=== PATIENT | male | born 1975 | race Caucasian/White ===

== ENCOUNTER 2017-01-25 00:23 | Inpatient (IN) | payer BC ==
--- NOTE | 2017-01-25 00:39 | C.PDOC ---
History Of Present Illness pt presents with abdominal pain, nausea, vomiting , not tolerating po worsening since yesterday. No f/c. No constipation or diarrhea. Possible outside food yesterday Time Seen by Provider: 01/25/17 00:38 Chief Complaint (Nursing): Abdominal Pain History Per: Patient History/Exam Limitations: no limitations Onset/Duration Of Symptoms: Days Current Symptoms Are (Timing): Still Present Context: Food Severity: Moderate Pain Scale Rating Of: 5 Location Of Pain/Discomfort: Diffuse Radiation Of Pain To:: None Quality Of Discomfort: Sharp, Aching, Cramping Associated Symptoms: Nausea, Vomiting, Loss Of Appetite. denies: Fever, Chills , Constipation Exacerbating Factors: Food Alleviating Factors: None Last Bowel Movement: Today Recent travel outside of the [place]: No Additional History Per: Family Past Medical History Reviewed: Historical Data, Nursing Documentation, Vital Signs Vital Signs: Last Vital Signs Temp 98.5 F 01/25/17 00:31 Pulse 120 H 01/25/17 00:31 Resp 16 01/25/17 00:31 BP 139/91 H 01/25/17 00:31 Pulse Ox 98 01/25/17 00:55 Family History: States: No Known Family Hx - Social History Hx Tobacco Use: No Hx Alcohol Use: Yes Hx Substance Use: No - Immunization History Hx Tetanus Toxoid Vaccination: No Hx Influenza Vaccination: No Hx Pneumococcal Vaccination: No Review Of Systems Constitutional: Positive for: Malaise. Negative for: Fever, Chills Eyes: Negative for: Vision Change ENT: Negative for: Throat Pain Cardiovascular: Negative for: Chest Pain, Palpitations Respiratory: Negative for: Shortness of Breath Gastrointestinal: Positive for: Nausea, Vomiting, Abdominal Pain Genitourinary: Negative for: Dysuria Musculoskeletal: Negative for: Back Pain Skin: Negative for: Rash, Lesions, Jaundice, Bruising Neurological: Negative for: Weakness Psych: Negative for: Anxiety Physical Exam - Physical Exam Appears: Non-toxic Skin: Warm, Dry Head: Normacephalic Eye(s): bilateral: Normal Inspection Oral Mucosa: Dry Teeth: Normal Dentition Throat: No Erythema Neck: Trachea Midline, Supple Chest: Symmetrical Cardiovascular: Rhythm Regular Respiratory: No Rales, No Rhonchi, No Wheezing Gastrointestinal/Abdominal: Bowel Sounds (tympanic to percussion), Soft, No Tenderness, No Distention, No Guarding Extremity: Normal ROM Extremity: Bilateral: Atraumatic, Normal Color And Temperature, Normal ROM Neurological/Psych: Oriented x3, Normal Speech, Normal Cognition Gait: Steady ED Course And Treatment - Laboratory Results Result Diagrams: 01/25/17 00:49 01/25/17 00:49 O2 Sat by Pulse Oximetry: 98 Pulse Ox Interpretation: Normal Progress Note: blood work, ivf, morphine, ct scan Disposition Discussed With DrBartolome: Joey Bermudez Comment: accepted the pt on his service and took over the care at 2:24 AM Doctor Will See Patient In The: ED Counseled Patient/Family Regarding: Studies Performed, Diagnosis - Disposition Disposition: HOSPITALIZED Disposition Time: 00:39 Condition: FAIR - Clinical Impression Clinical Impression: Abdominal pain, Small bowel obstruction, Enteritis
[2017-01-25] MEDS ORDERED: Sodium Chloride 0.9% 1,000 ML IV ONE ×2 (00:41→02:18)
[2017-01-25] MEDS ORDERED: Sodium Chloride 0.9% 1,000 ML ONE ×2 (00:51→02:23)
[2017-01-25 00:52] LABS: BASO % 0.2 % (0.0-2.0); EOS # 0.1 K/uL (0.0-0.7); EOS % 0.9 % (0.0-4.0); HEMATOCRIT 47.1 % (35.0-51.0); LYMPH # 0.6 K/uL (1.0-4.3); LYMPH % 6.3 % (20.0-40.0); MEAN CELL VOLUME 87.6 fL (80.0-94.0); MEAN CORPUSCULAR HEMOGLOBIN 30.2 pg (27.0-31.0); MEAN CORPUSCULAR HGB CONC 34.5 g/dL (33.0-37.0); MEAN PLATELET VOLUME 6.9 fL (7.2-11.7); MONO # 0.5 K/uL (0.0-0.8); MONO % 5.1 % (0.0-10.0); PLATELET COUNT 301 K/uL (130-400); WHITE BLOOD COUNT 9.6 K/uL (4.8-10.8)
[2017-01-25] MEDS ORDERED: Morphine 4 MG/ML VIAL ONE (00:58)
[2017-01-25 01:06] LABS: CHLORIDE 96 mmol/L (98-107); SODIUM 137 mmol/L (132-148)
[2017-01-25 01:07] LABS: POTASSIUM 3.4 mmol/L (3.6-5.2)
[2017-01-25 01:09] LABS: ALB/GLOB RATIO 1.4 (1.0-2.1); ALKALINE PHOSPHATASE 66 U/L (38-126); ALT/SGPT 60 U/L (21-72); AST/SGOT 43 U/L (17-59); BILIRUBIN,TOTAL 1.2 mg/dL (0.2-1.3); BLOOD UREA NITROGEN 17 mg/dL (9-20); CALCIUM 8.5 mg/dl (8.6-10.4); CARBON DIOXIDE 28 mmol/L (22-30); GFR AFRICAN-AMERICAN > 60; GLUCOSE,RANDOM 130 mg/dL (75-110); TOTAL PROTEIN 7.7 g/dL (6.3-8.3)
[2017-01-25] MEDS ORDERED: Iodixanol 320 MG/ML 100 ML BOTTLE IV ONE (01:27)
[2017-01-25 01:43] LABS: BLASTS 1 % (0-0); EOSINOPHIL 1 % (0-4); NEUTROPHIL 46 % (50-75); REACTIVE LYMPHOCYTES 1 % (0-0); TOTAL CELLS COUNTED 100
[2017-01-25] MEDS ORDERED: Piperacillin/Tazobact 3.375 gm 100 ML IVPB STA (01:44)
[2017-01-25] MEDS ORDERED: Piperacillin/Tazobact 3.375 gm 100 ML IVPB ONE (02:11)
[2017-01-25 02:17] LABS: VENOUS BLOOD GAS BASE EXCESS 0.8 mmol/L (0.0-2.0); VENOUS BLOOD GAS PCO2 58 mmHg (40-60)
--- NOTE | 2017-01-25 02:20 | CP.PCM.HP ---
History of Present Illness - History of Present Illness History of Present Illness: CC: stomach pain, vomiting, and diarrhea for 2 days HPI: 41 yo male with no PMHx on no medications presenting with abdominal pain, nausea, and vomiting for the past 2 days. Patient states that Wednesday night he ate a tuna sandwich and started to have abdominal pain 10/10 at the middle of his abdomen, non radiating, and associated nausea, vomiting, and diarrhea. Patient reports he has had ~20 bouts of nonbloody nonmelanotic diarrhea and nonbloody nonbilious emesis. His last episode of emesis was during the day before admission and his last episode of diarrhea was in the ER. He also complained of associated fever and chills. Patient reported taking tylenol for the pain and drinking 1 bottle of pedialyte which helped but a couple of hours later the symptoms returned. Patient also drank prune juice to help his pain and diarrhea which he later threw up. He denied any exacerbating factors. Patient denied headache, dizziness, chest pain, palpitations, SOB, cough, constipation, urinary complaints, pain/swelling in his legs bilaterally. He did admit to fever, chills, nasuea, vomiting, abd pain, diarrhea, full body muscle aches. Patient denied any recent travel, sick contacts, recent illness. Nobody else at home has similar symptoms. PMHx: denies PSHx: denies ALL: denies Medications: denies Social Hx: denies tobacco, EtOH, drugs. Lives at home with and daughters. Works at [employer] Hx: uncertain PMD: [facility] ED Course: labs, NS bolus, pepcid, 1 dose of flagyl and zosyn, morphine for pain , zofran CT Abdomen/pelvis Present on Admission - Present on Admission Any Indicators Present on Admission: No Review of Systems - Constitutional Constitutional: As Per HPI, Chills, Fever, Malaise. absent: Headache, Weight Gain, Weight Loss, Weakness - EENT Eyes: As Per HPI. absent: Blurred Vision Ears: As Per HPI. absent: Tinnitus, Dizziness Nose/Mouth/Throat: As Per HPI. absent: Dysphagia, Sore Throat - Cardiovascular Cardiovascular: As Per HPI. absent: Chest Pain, Dyspnea, Edema, Leg Edema, Palpitations - Respiratory Respiratory: As Per HPI. absent: Cough, Dyspnea, Chest Congestion - Gastrointestinal Gastrointestinal: As Per HPI, Abdominal Pain, Change in Bowel Habits, Change in Stool Character, Cramping, Loose Stools, Nausea, Vomiting. absent: Coffee Ground Emesis, Constipation, Diarrhea, Dyspepsia, Dysphagia, Heartburn, Hematochezia - Genitourinary Genitourinary: As Per HPI, Urinary Frequency. absent: Dysuria, Flank Pain, Hematuria, Pyuria, Nocturia - Musculoskeletal Musculoskeletal: As Per HPI, Back Pain, Myalgias. absent: Numbness, Stiffness, Tingling - Integumentary Integumentary: As Per HPI. absent: Rash - Neurological Neurological: As Per HPI. absent: Dizziness, Headaches, Tingling, Weakness - Psychiatric Psychiatric: As Per HPI. absent: Anxiety, Depression - Endocrine Endocrine: As Per HPI. absent: Polydipsia, Polyphagia, Polyuria - Hematologic/Lymphatic Hematologic: As Per HPI. absent: Easy Bleeding, Easy Bruising, Lymphadenopathy Past Patient History - Past Social History Smoking Status: Never Smoked - PSYCHIATRIC Hx Substance Use: No - SURGICAL HISTORY Hx Surgeries: No Meds Allergies/Adverse Reactions: Allergies Allergy/AdvReac Type Severity Reaction Status Date / Time No Known Allergies Allergy Verified 01/25/17 00:34 Physical Exam - Constitutional Appears: Non-toxic, No Acute Distress - Head Exam Head Exam: ATRAUMATIC, NORMAL INSPECTION, NORMOCEPHALIC - Eye Exam Eye Exam: EOMI, Normal appearance, PERRL. absent: Conjunctival injection, Scleral icterus Pupil Exam: NORMAL ACCOMODATION - ENT Exam ENT Exam: Mucous Membranes Dry - Neck Exam Neck exam: Positive for: Full Rom, Normal Inspection. Negative for: Lymphadenopathy - Respiratory Exam Respiratory Exam: Clear to Auscultation Bilateral, NORMAL BREATHING PATTERN. absent: Accessory Muscle Use, Rales, Rhonchi, Wheezes, Respiratory Distress - Cardiovascular Exam Cardiovascular Exam: Tachycardia, REGULAR RHYTHM, +S1, +S2. absent: Systolic Murmur - GI/Abdominal Exam GI & Abdominal Exam: Normal Bowel Sounds, Soft. absent: Distended, Firm, Guarding, Rigid, Tenderness - Rectal Exam Rectal Exam: Deferred - Extremities Exam Extremities exam: Positive for: normal capillary refill, normal inspection, pedal pulses present. Negative for: pedal edema, tenderness - Back Exam Back exam: NORMAL INSPECTION, paraspinal tenderness. absent: CVA tenderness (L) , CVA tenderness (R), rash noted - Neurological Exam Neurological exam: Alert, CN II-XII Intact, Oriented x3 - Psychiatric Exam Psychiatric exam: Normal Affect, Normal Mood - Skin Skin Exam: Dry, Intact, Normal Color, Warm Results - Vital Signs Recent Vital Signs: Last Vital Signs Temp 98.5 F 01/25/17 00:31 Pulse 120 H 01/25/17 00:31 Resp 16 01/25/17 00:31 BP 139/91 H 01/25/17 00:31 Pulse Ox 98 01/25/17 00:55 - Labs Result Diagrams: 01/25/17 00:49 01/25/17 00:49 Labs: Laboratory Results - last 24 hr 01/25/17 01/25/17 01/25/17 00:49 00:49 00:56 WBC 9.6 RBC 5.37 Hgb 16.2 Hct 47.1 MCV 87.6 MCH 30.2 MCHC 34.5 RDW 13.0 Plt Count 301 MPV 6.9 L Neut % (Auto) 87.5 H Lymph % (Auto) 6.3 L [place] % (Auto) 5.1 Eos % (Auto) 0.9 Baso % (Auto) 0.2 Neut # 8.4 H Lymph # 0.6 L [place] # 0.5 Eos # 0.1 Baso # 0.0 Neutrophils % (Manual) 46 L Band Neutrophils % 37 H* Lymphocytes % (Manual) 9 L Reactive Lymphs % 1 H Monocytes % (Manual) 5 Eosinophils % (Manual) 1 Blast Cells % 1 H Platelet Estimate Normal PT 11.2 INR 1.0 APTT 26 pO2 VBG pH VBG pCO2 VBG HCO3 VBG Total CO2 VBG O2 Sat (Calc) VBG Base Excess VBG Potassium Glucose Lactate Crit Value Called To Crit Value Called By Crit Value Read Back Blood Gas Notified Time Sodium 137 Potassium 3.4 L Chloride 96 L Carbon Dioxide 28 Anion Gap 16 BUN 17 Creatinine 0.8 Est GFR ( Amer) > 60 Est GFR (Non-Af Amer) > 60 Random Glucose 130 H Calcium 8.5 L Total Bilirubin 1.2 AST 43 ALT 60 Alkaline Phosphatase 66 Total Protein 7.7 Albumin 4.6 Globulin 3.2 Albumin/Globulin Ratio 1.4 Lipase 28 Venous Blood Potassium 01/25/17 02:10 WBC RBC Hgb Hct MCV MCH MCHC RDW Plt Count MPV Neut % (Auto) Lymph % (Auto) [place] % (Auto) Eos % (Auto) Baso % (Auto) Neut # Lymph # [place] # Eos # Baso # Neutrophils % (Manual) Band Neutrophils % Lymphocytes % (Manual) Reactive Lymphs % Monocytes % (Manual) Eosinophils % (Manual) Blast Cells % Platelet Estimate PT INR APTT pO2 21 L VBG pH 7.30 L VBG pCO2 58 VBG HCO3 23.7 VBG Total CO2 30.3 H VBG O2 Sat (Calc) 39.1 L VBG Base Excess 0.8 VBG Potassium 3.3 L Glucose 115 H Lactate 1.9 Crit Value Called To Dr burch Crit Value Called By Anne suarez rt Crit Value Read Back Y Blood Gas Notified Time 218 Sodium 140.0 Potassium Chloride 102.0 Carbon Dioxide Anion Gap BUN Creatinine Est GFR ( Amer) Est GFR (Non-Af Amer) Random Glucose Calcium Total Bilirubin AST ALT Alkaline Phosphatase Total Protein Albumin Globulin Albumin/Globulin Ratio Lipase Venous Blood Potassium 3.3 L Assessment & Plan - Assessment and Plan (Free Text) Assessment: 41 yo male with no PMHx on no medications presenting with abdominal pain, nausea , and vomiting for the past 2 days Plan: Gastroenteritis -NPO -f/u CT abdomen/pelvis -Protonix 40mg ivp daily -LR @ 100c/hr -Zofran 4mg ivp q6 PRN nausea/vomiting -Toradol 15mg ivp q6 prn pain -f/u blood culture -f/u stool studies stool culture stool leukocytes ova and parasite FOBT -f/u AM labs PPX -NPO -SCDs -Heparin 5000U SC Q12 -Protonix 40mg ivp daily -LR @ 100c/hr -Zofran 4mg ivp q6 PRN nausea/vomiting -Toradol 15mg ivp q6 prn pain -Accucheck Plan discussed with Dr. Lara Nixon PGY1
[2017-01-25] MEDS ORDERED: metroNIDAZOLE IV 500 mg/100 ml 500 MG/100 ML BAG IVPB STA (02:29)
[2017-01-25] MEDS ORDERED: metroNIDAZOLE IV 500 mg/100 ml 500 MG/100 ML BAG ONE (02:40)
[2017-01-25 02:52] LABS: RBC URINE 1 /hpf (0-3); URINE BILIRUBIN NEGATIVE (NEGATIVE); URINE BLOOD NEGATIVE (NEGATIVE); URINE COLOR Yellow (YELLOW); URINE GLUCOSE (UA) NORMAL (Normal); URINE KETONE 1+ mg/dL (NEGATIVE); URINE LEUKOCYTE ESTERASE NEG Leu/uL (Negative); URINE PROTEIN 1+ mg/dL (NEGATIVE); URINE UROBILINOGEN NORMAL mg/dL (0.2-1.0); WBC URINE 1 /hpf (0-5)
[2017-01-25] MEDS ORDERED: Lactated Ringer's 1,000 ML ONE (03:41)
[2017-01-25] MEDS: Lactated Ringer's 1,000 ML IV SCH ×2 (03:50→13:30)
[2017-01-25 04:53] LABS: BASO % 0.2 % (0.0-2.0); EOS % 0.4 % (0.0-4.0); LYMPH # 0.4 K/uL (1.0-4.3); LYMPH % 4.9 % (20.0-40.0); MEAN CELL VOLUME 88.1 fL (80.0-94.0); MEAN CORPUSCULAR HEMOGLOBIN 30.2 pg (27.0-31.0); MEAN CORPUSCULAR HGB CONC 34.3 g/dL (33.0-37.0); MEAN PLATELET VOLUME 7.1 fL (7.2-11.7); MONO # 1.1 K/uL (0.0-0.8); PLATELET COUNT 261 K/uL (130-400); RED CELL DISTRIBUTION WIDTH 13.1 % (11.5-14.5); WHITE BLOOD COUNT 8.1 K/uL (4.8-10.8)
[2017-01-25 05:37] LABS: CHLORIDE 104 mmol/L (98-107); POTASSIUM 3.4 mmol/L (3.6-5.2); SODIUM 138 mmol/L (132-148)
[2017-01-25 05:39] LABS: ALB/GLOB RATIO 1.3 (1.0-2.1); AST/SGOT 35 U/L (17-59); BILIRUBIN,TOTAL 1.1 mg/dL (0.2-1.3); BLOOD UREA NITROGEN 16 mg/dL (9-20); CARBON DIOXIDE 27 mmol/L (22-30); CHOLESTEROL 191 mg/dL (0-199); GFR AFRICAN-AMERICAN > 60; GLUCOSE,RANDOM 111 mg/dL (75-110); TOTAL PROTEIN 6.6 g/dL (6.3-8.3)
[2017-01-25 05:40] LABS: ALKALINE PHOSPHATASE 52 U/L (38-126); ALT/SGPT 53 U/L (21-72); CALCIUM 7.3 mg/dl (8.6-10.4); MAGNESIUM 1.9 mg/dL (1.6-2.3); PHOSPHOROUS 2.9 mg/dL (2.5-4.5)
[2017-01-25 06:18] LABS: NEUTROPHIL 82 % (50-75); TOTAL CELLS COUNTED 100
--- NOTE | 2017-01-25 08:26 | CT ---
PROCEDURE: CT Abdomen and Pelvis without intravenous contrast HISTORY: Abdominal pain. Nausea and vomiting. COMPARISON: None. TECHNIQUE: Multiple contiguous axial images were performed through the abdomen and pelvis with the use of intravenous contrast. Subsequently, sagittal and coronal reformatted images were obtained. Contrast Dose: 100 cc of Visipaque 320 intravenous contrast. Radiation dose: Total exam DLP = 604 mGy-cm. This CT exam was performed using one or more of the following dose reduction techniques: Automated exposure control, adjustment of the mA and/or kV according to patient size, and/or use of iterative reconstruction technique. FINDINGS: LOWER THORAX: Small hiatal hernia present. LIVER: Mild fatty infiltration of the liver. GALLBLADDER AND BILE DUCTS: Unremarkable. PANCREAS: Unremarkable. No gross lesion or ductal dilatation. SPLEEN: Unremarkable. ADRENALS: Unremarkable. No mass. KIDNEYS AND URETERS: Unremarkable. No hydronephrosis. No solid mass. VASCULATURE: Unremarkable. No aortic aneurysm. BOWEL: Multiple dilated loops of small bowel throughout the abdomen, which are fluid-filled. Terminal ileum is nondilated. Questionable mucosal enhancement in some of the distal small bowel loops. Mildly thickened stomach wall. Fluid-filled colon. APPENDIX: Unremarkable. Normal appendix. PERITONEUM: Unremarkable. No free fluid. No free air. LYMPH NODES: Multiple small mesenteric lymph nodes at the root of the mesentery. BLADDER: Decompressed urinary bladder. REPRODUCTIVE: Unremarkable. BONES: Few scattered bone islands noted. OTHER FINDINGS: None. IMPRESSION: Multiple dilated loops of small bowel throughout the abdomen which are fluid-filled. The terminal ileum is nondilated. Questionable mucosal enhancement in some of the distal small bowel loops. Findings are concerning for a possible small bowel obstruction which may be related to an ileitis or stricture. Clinical correlation. These findings were preliminarily reported at 2:13 a.m. on 01/25/[address] Neeta Mccann from [facility].
[2017-01-25] MEDS: Ciprofloxacin 400mg/200ml D5W 400 MG/200 ML BAG IVPB SCH ×2 (08:55→20:00)
[2017-01-25] MEDS ORDERED: Potassium Chloride 20 mEq ER Tab PO STA (09:07)
--- NOTE | 2017-01-25 09:55 | CP.PCM.CON ---
History of Present Illness - History of Present Illness History of Present Illness: Surgery consult note for Dr. Potts CC: "Abdominal pain" HPI: 41yo M admitted for abdominal pain and diarrhea. Pt was in his normal state of health until 2days ago when he felt febrile and had diffuse abdominal pain 2 after eating a tuna sandwich. Yesterday, he drank some chicken broth hoping to alleviate his fever and noted that he felt much worse, with severe bloating and increased pain. He induced vomiting twice yesterday and felt some relief, but has not vomited again. Pt estimates that he has had 20 watery bowel movements over the last few days but reports no hematochezia or bright red blood. He has never experienced anything like this before. He feels that his fever has reduced, his abdominal pain has improved and that he continues to have watery bowel movements, but reports no flatus. SurgHx: None MedHx: None Meds: [place] 3 fish oil Allergies: None FamHx: None Review of Systems - Review of Systems All systems: reviewed and no additional remarkable complaints except (as per hpi ) - Constitutional Constitutional: absent: Fever, Weight Loss - Gastrointestinal Gastrointestinal: Abdominal Pain, Diarrhea, Loose Stools. absent: Constipation , Excessive Flatus, Hematochezia, Nausea, Vomiting Past Patient History - Past Medical History & Family History Past Medical History?: Yes - Past Social History Smoking Status: Never Smoked - CARDIAC Hx Cardiac Disorders: No - PULMONARY Hx Respiratory Disorders: No - NEUROLOGICAL Hx Neurological Disorder: No - HEENT Hx HEENT Problems: No - RENAL Hx Chronic Kidney Disease: No - ENDOCRINE/METABOLIC Hx Endocrine Disorders: No - HEMATOLOGICAL/ONCOLOGICAL Hx Blood Disorders: No - INTEGUMENTARY Hx Dermatological Problems: No - MUSCULOSKELETAL/RHEUMATOLOGICAL Hx Falls: No - GASTROINTESTINAL Other/Comment: SBO at this time. - GENITOURINARY/GYNECOLOGICAL Hx Genitourinary Disorders: No - PSYCHIATRIC Hx Substance Use: No - SURGICAL HISTORY Other/Comment: Dental Work. - ANESTHESIA Hx Anesthesia: Yes Hx Anesthesia Reactions: No Hx Malignant Hyperthermia: No Has any member of the family had a problem w/ anesthesia?: No Meds Allergies/Adverse Reactions: Allergies Allergy/AdvReac Type Severity Reaction Status Date / Time No Known Allergies Allergy Verified 01/25/17 00:34 - Medications Medications: Current Medications Heparin Sodium (Porcine) (Heparin) 5,000 units SC Q12 [facility] Last Admin: 06/05/17 09:45 Dose: 5,000 units Lactated Ringer's (Lactated Ringer's) 1,000 mls @ 100 mls/hr IV .Q10H [facility] Last Admin: 01/25/17 03:50 Dose: 100 mls/hr Ciprofloxacin (Cipro 400mg/200ml Dsw) 400 mg in 200 mls @ 133 mls/hr IVPB Q12H [facility] Last Admin: 01/25/17 08:55 Dose: 133 mls/hr Metronidazole (Flagyl) 500 mg in 100 mls @ 100 mls/hr IVPB Q8 [facility] Ketorolac Tromethamine (Toradol) 15 mg IVP Q6H PRN PRN Reason: Pain, moderate (4-7) Loperamide HCl (Imodium) 2 mg PO ONCE STA Stop: 01/25/17 09:48 Ondansetron HCl (Zofran Inj) 4 mg IVP Q6H PRN PRN Reason: Nausea/Vomiting Pantoprazole Sodium (Protonix Inj) 40 mg IVP DAILY [facility] Last Admin: 01/25/17 09:46 Dose: 40 mg Pneumococcal Polyvalent Vaccine (Pneumovax 23 Vaccine) 0.5 ml IM .ONCE ONE Stop: 01/27/17 10:01 Physical Exam - Constitutional Appears: No Acute Distress - Head Exam Head Exam: ATRAUMATIC, NORMAL INSPECTION, NORMOCEPHALIC - ENT Exam ENT Exam: Mucous Membranes Dry - Respiratory Exam Respiratory Exam: Clear to Auscultation Bilateral - Cardiovascular Exam Cardiovascular Exam: REGULAR RHYTHM. absent: Diastolic murmur, Gallop, Rubs, Systolic Murmur - GI/Abdominal Exam GI & Abdominal Exam: Diminished Bowel Sounds, Distended, Soft, Tenderness ( diffuse but minimal) - Neurological Exam Neurological exam: Alert, Oriented x3 - Psychiatric Exam Psychiatric exam: Normal Affect, Normal Mood - Skin Skin Exam: Normal Color, Warm Results - Vital Signs Recent Vital Signs: Last Vital Signs Temp 98.7 F 01/25/17 08:30 Pulse 105 H 01/25/17 08:30 Resp 18 01/25/17 08:30 BP 112/68 01/25/17 08:30 Pulse Ox 97 01/25/17 08:30 - Labs Result Diagrams: 01/25/17 04:51 01/25/17 04:51 Labs: Laboratory Results - last 24 hr 01/25/17 01/25/17 01/25/17 04:51 04:51 04:51 WBC 8.1 RBC 5.00 Hgb 15.1 Hct 44.0 MCV 88.1 MCH 30.2 MCHC 34.3 RDW 13.1 Plt Count 261 MPV 7.1 L Neut % (Auto) 81.5 H Lymph % (Auto) 4.9 L [place] % (Auto) 13.0 H Eos % (Auto) 0.4 Baso % (Auto) 0.2 Neut # 6.6 Lymph # 0.4 L [place] # 1.1 H Eos # 0.0 Baso # 0.0 Neutrophils % (Manual) 82 H Lymphocytes % (Manual) 6 L Monocytes % (Manual) 12 H Platelet Estimate Normal Sodium 138 Potassium 3.4 L Chloride 104 Carbon Dioxide 27 Anion Gap 11 BUN 16 Creatinine 0.8 Est GFR ( Amer) > 60 Est GFR (Non-Af Amer) > 60 POC Glucose (mg/dL) Random Glucose 111 H Hemoglobin A1c 5.6 Calcium 7.3 L Phosphorus 2.9 Magnesium 1.9 Total Bilirubin 1.1 AST 35 ALT 53 Alkaline Phosphatase 52 Total Protein 6.6 Albumin 3.8 Globulin 2.8 Albumin/Globulin Ratio 1.3 Triglycerides 65 Cholesterol 191 LDL Cholesterol Direct 112 HDL Cholesterol 48 Stool Occult Blood 01/25/17 01/25/17 06:34 07:21 WBC RBC Hgb Hct MCV MCH MCHC RDW Plt Count MPV Neut % (Auto) Lymph % (Auto) [place] % (Auto) Eos % (Auto) Baso % (Auto) Neut # Lymph # [place] # Eos # Baso # Neutrophils % (Manual) Lymphocytes % (Manual) Monocytes % (Manual) Platelet Estimate Sodium Potassium Chloride Carbon Dioxide Anion Gap BUN Creatinine Est GFR ( Amer) Est GFR (Non-Af Amer) POC Glucose (mg/dL) 117 H Random Glucose Hemoglobin A1c Calcium Phosphorus Magnesium Total Bilirubin AST ALT Alkaline Phosphatase Total Protein Albumin Globulin Albumin/Globulin Ratio Triglycerides Cholesterol LDL Cholesterol Direct HDL Cholesterol Stool Occult Blood Positive H Assessment & Plan - Assessment and Plan (Free Text) Assessment: 41M admitted for abdominal pain; surgery consult for possible SBO - Afebrile - Patient continues to have watery bowel movements and has not vomited since yesterday and only when self-induced - more likely enteritis than SBO - 1 dose for loperamide for diarrhea - Start Clear liquid diet, ADAT Discussed with Dr. Delroy Jacobs, PGY2 - Date & Time Date: 01/25/17 Time: 10:15
--- NOTE | 2017-01-25 11:31 | CP.PCM.PN ---
<Joanne Au DO - Last Filed: 01/25/17 11:28> Subjective - Date & Time of Evaluation Date of Evaluation: 01/25/17 Time of Evaluation: 08:40 - Subjective Subjective: PGY1 Progress Note for Dr. Kendrick Patient seen and examined. Patient states he feels better today. Patient states that on Wednesday he started having abdominal pain after eating a tuna sandwich. He states that he felt he had a fever on Wednesday and had chicken soup his made. Patient states that after having the soup he felt his stomach was too full and was painful so he self-induced vomiting without relief of his abdominal pain. Patient states he drank prune juice as well and reports having watery diarrhea. Patient states he had watery diarrhea again early this morning after drinking water. Patient denies qi blood in stool. Patient will start clear liquid diet today. Objective - Vital Signs/Intake and Output Vital Signs (last 24 hours): Temp Pulse Resp BP Pulse Ox 98.7 F 105 H 18 112/68 97 01/25/17 08:30 01/25/17 08:30 01/25/17 08:30 01/25/17 08:30 01/25/17 08:30 Intake and Output: 01/25/17 01/25/17 06:59 18:59 Intake Total 125 Balance 125 - Medications Medications: Current Medications Heparin Sodium (Porcine) (Heparin) 5,000 units SC Q12 [facility] Lactated Ringer's (Lactated Ringer's) 1,000 mls @ 100 mls/hr IV .Q10H [facility] Last Admin: 01/25/17 03:50 Dose: 100 mls/hr Ciprofloxacin (Cipro 400mg/200ml Dsw) 400 mg in 200 mls @ 133 mls/hr IVPB Q12H [facility] Last Admin: 01/25/17 08:55 Dose: 133 mls/hr Metronidazole (Flagyl) 500 mg in 100 mls @ 100 mls/hr IVPB Q8 [facility] Ondansetron HCl (Zofran Inj) 4 mg IVP Q6H PRN PRN Reason: Nausea/Vomiting Pantoprazole Sodium (Protonix Inj) 40 mg IVP DAILY [facility] Last Admin: 01/25/17 09:46 Dose: 40 mg Pneumococcal Polyvalent Vaccine (Pneumovax 23 Vaccine) 0.5 ml IM .ONCE ONE Stop: 01/27/17 10:01 - Labs Labs: 01/25/17 04:51 01/25/17 04:51 PT 11.2 SECONDS (9.7-12.2) 01/25/17 00:56 INR 1.0 01/25/17 00:56 APTT 26 SECONDS (21-34) 01/25/17 00:56 - Constitutional Appears: Non-toxic, No Acute Distress - Head Exam Head Exam: ATRAUMATIC, NORMOCEPHALIC - Eye Exam Eye Exam: EOMI - ENT Exam ENT Exam: Mucous Membranes Moist - Respiratory Exam Respiratory Exam: Clear to Ausculation Bilateral, NORMAL BREATHING PATTERN - Cardiovascular Exam Cardiovascular Exam: +S1, +S2 - GI/Abdominal Exam GI & Abdominal Exam: Soft, Normal Bowel Sounds. absent: Tenderness - Extremities Exam Extremities Exam: Normal Inspection. absent: Pedal Edema - Neurological Exam Neurological Exam: Alert, Awake - Skin Skin Exam: Warm Assessment and Plan - Assessment and Plan (Free Text) Assessment: Gastroenteritis -start liquid diet today -CT abdomen/pelvis- multiple dilated loops of small bowel that are fluid- filled. Questionable mucosal enhancement in some of distal small bowel loops. mildly thickened stomach wall, fluid-filled colon. Multiple small mesenteric lymph nodes at root of mesentery. Terminal ileum nondilated. Findings concerning for possible small bowel obstruction which may be related to ileitis or stricture. -Surgical consult, Dr. Potts to r/o SBO- pt likely with enteritis, not SBO, starting patient on liquid diet -Protonix 40mg ivp daily -LR @ 100c/hr -Zofran 4mg ivp q6 PRN nausea/vomiting -f/u blood culture -f/u stool studies stool culture stool leukocytes ova and parasite Positive stool occult blood stopping heparin GI consult placed for Dr. Ramos, help appreciated PPX -NPO -SCDs -Protonix 40mg ivp daily -LR @ 100c/hr -Zofran 4mg ivp q6 PRN nausea/vomiting <Jonathan Kendrick - Last Filed: 01/26/17 09:10> Objective - Vital Signs/Intake and Output Vital Signs (last 24 hours): Temp Pulse Resp BP Pulse Ox 98.2 F 88 20 119/74 96 01/25/17 23:10 01/25/17 23:10 01/25/17 23:10 01/25/17 23:10 01/25/17 23:10 Intake and Output: 01/26/17 01/26/17 06:59 18:59 Intake Total 920 Balance 920 - Medications Medications: Current Medications Heparin Sodium (Porcine) (Heparin) 5,000 units SC Q12 [facility] Last Admin: 01/25/17 11:22 Dose: Not Given Lactated Ringer's (Lactated Ringer's) 1,000 mls @ 100 mls/hr IV .Q10H [facility] Last Admin: 01/26/17 08:47 Dose: Not Given Ciprofloxacin (Cipro 400mg/200ml Dsw) 400 mg in 200 mls @ 133 mls/hr IVPB Q12H [facility] Last Admin: 01/26/17 08:44 Dose: 133 mls/hr Metronidazole (Flagyl) 500 mg in 100 mls @ 100 mls/hr IVPB Q8 [facility] Last Admin: 01/26/17 06:00 Dose: 100 mls/hr Ondansetron HCl (Zofran Inj) 4 mg IVP Q6H PRN PRN Reason: Nausea/Vomiting Pantoprazole Sodium (Protonix Inj) 40 mg IVP DAILY [facility] Last Admin: 01/25/17 09:46 Dose: 40 mg Pneumococcal Polyvalent Vaccine (Pneumovax 23 Vaccine) 0.5 ml IM .ONCE ONE Stop: 01/27/17 10:01 - Labs Labs: 01/26/17 07:15 01/26/17 07:15 PT 11.2 SECONDS (9.7-12.2) 01/25/17 00:56 INR 1.0 01/25/17 00:56 APTT 26 SECONDS (21-34) 01/25/17 00:56 Attending/Attestation - Attestation I have personally seen and examined this patient.: Yes I have fully participated in the care of the patient.: Yes I have reviewed all pertinent clinical information, including history, physical exam and plan: Yes Notes (Text): 01/26/17 09:10 Patient seen and examined at bedside with the resident States that abdominal pain is improving Does not have any further episodes of for nausea vomiting or diarrhea. GI and surgery evaluation requested. Follow up recommendations I discussed the plan of care with the resident and agree with the above history and physical and assessment/plan by the resident.
--- NOTE | 2017-01-25 12:09 | CP.PCM.CON ---
History of Present Illness - History of Present Illness History of Present Illness: Patient is a 41 yo male with no PMHx on no medications presenting with abdominal pain, nausea, and vomiting for the past 2 days. Patient states that Wednesday night he ate a tuna sandwich and started to have abdominal pain 10/10 at the middle of his abdomen, non radiating, and associated nausea, vomiting, and diarrhea. Patient reports he has had ~20 bouts of nonbloody nonmelanotic diarrhea and nonbloody nonbilious emesis. His last episode of emesis was during the day before admission and his last episode of diarrhea was in the ER. He also complained of associated fever and chills. Patient reported taking tylenol for the pain and drinking 1 bottle of pedialyte which helped but a couple of hours later the symptoms returned. Patient also drank prune juice to help his pain and diarrhea which he later threw up. He denied any exacerbating factors. Patient denied headache, dizziness, chest pain, palpitations, SOB, cough, constipation, urinary complaints, pain/swelling in his legs bilaterally. He did admit to fever, chills, nausea, vomiting, abd pain, diarrhea, full body muscle aches. Patient denied any recent travel, sick contacts, recent illness. Nobody else at home has similar symptoms. No recent antibiotic usage. No raw fish, undercooked chicken or buffet consumption of note. Noted to have leukocytosis with bandemia on admission which has improved today. Seen by surgical service who favors an infectious etiology and not SBO. CT findings of dilated loops of bowel c/w enteritis as well. Asked to evaluate due to fecal occult blood positive with no overt bleeding or change in H/H since admission. Review of Systems - Constitutional Constitutional: Chills, Weakness - Cardiovascular Cardiovascular: absent: Chest Pain, Dyspnea, Irregular Heart Rhythm - Respiratory Respiratory: absent: Cough, Dyspnea on Exertion, Snoring - Gastrointestinal Gastrointestinal: As Per HPI Past Patient History - Past Medical History & Family History Past Medical History?: Yes - Past Social History Smoking Status: Never Smoked - CARDIAC Hx Cardiac Disorders: No - PULMONARY Hx Respiratory Disorders: No - NEUROLOGICAL Hx Neurological Disorder: No - HEENT Hx HEENT Problems: No - RENAL Hx Chronic Kidney Disease: No - ENDOCRINE/METABOLIC Hx Endocrine Disorders: No - HEMATOLOGICAL/ONCOLOGICAL Hx Blood Disorders: No - INTEGUMENTARY Hx Dermatological Problems: No - MUSCULOSKELETAL/RHEUMATOLOGICAL Hx Falls: No - GASTROINTESTINAL Hx Gastrointestinal Disorders: No Hx Bowel Surgery: No Hx Clostridium Difficile: No Hx Colitis: No Hx Colostomy: No Hx Constipation: No Hx Crohn's Disease: No Hx Diarrhea: No Hx Diverticulitis: No Hx Esophageal Varices: No Hx Fatty Liver Disease: No Hx Gall Bladder Disease: No Hx Gastritis: No Hx Gastroesophageal Reflux: No Hx Hemorrhoids: No Hx Ileostomy: No Hx Irritable Bowel: No Hx Liver Failure: No Hx Nausea: No Hx Pancreatitis: No HX Swallowing Problems: No Hx Ulcer: No Hx Vomiting: No - GENITOURINARY/GYNECOLOGICAL Hx Genitourinary Disorders: No - PSYCHIATRIC Hx Substance Use: No - SURGICAL HISTORY Other/Comment: Dental Work. - ANESTHESIA Hx Anesthesia: Yes Hx Anesthesia Reactions: No Hx Malignant Hyperthermia: No Has any member of the family had a problem w/ anesthesia?: No Meds Allergies/Adverse Reactions: Allergies Allergy/AdvReac Type Severity Reaction Status Date / Time No Known Allergies Allergy Verified 01/25/17 00:34 - Medications Medications: Current Medications Heparin Sodium (Porcine) (Heparin) 5,000 units SC Q12 [facility] Last Admin: 01/25/17 11:22 Dose: Not Given Lactated Ringer's (Lactated Ringer's) 1,000 mls @ 100 mls/hr IV .Q10H [facility] Last Admin: 01/25/17 03:50 Dose: 100 mls/hr Ciprofloxacin (Cipro 400mg/200ml Dsw) 400 mg in 200 mls @ 133 mls/hr IVPB Q12H [facility] Last Admin: 01/25/17 08:55 Dose: 133 mls/hr Metronidazole (Flagyl) 500 mg in 100 mls @ 100 mls/hr IVPB Q8 [facility] Ondansetron HCl (Zofran Inj) 4 mg IVP Q6H PRN PRN Reason: Nausea/Vomiting Pantoprazole Sodium (Protonix Inj) 40 mg IVP DAILY [facility] Last Admin: 01/25/17 09:46 Dose: 40 mg Pneumococcal Polyvalent Vaccine (Pneumovax 23 Vaccine) 0.5 ml IM .ONCE ONE Stop: 01/27/17 10:01 Physical Exam - Constitutional Appears: No Acute Distress - Head Exam Head Exam: ATRAUMATIC, NORMOCEPHALIC - Eye Exam Eye Exam: EOMI, PERRL - Respiratory Exam Respiratory Exam: NORMAL BREATHING PATTERN - Cardiovascular Exam Cardiovascular Exam: REGULAR RHYTHM, +S1 - GI/Abdominal Exam GI & Abdominal Exam: Distended, Normal Bowel Sounds, Soft. absent: Tenderness - Rectal Exam Rectal Exam: NORMAL INSPECTION - Extremities Exam Extremities exam: Positive for: normal inspection - Neurological Exam Neurological exam: Alert, Oriented x3 - Psychiatric Exam Psychiatric exam: Normal Affect, Normal Mood - Skin Skin Exam: Dry, Warm Results - Vital Signs Recent Vital Signs: Last Vital Signs Temp 98.7 F 01/25/17 08:30 Pulse 105 H 01/25/17 08:30 Resp 18 01/25/17 08:30 BP 112/68 01/25/17 08:30 Pulse Ox 97 01/25/17 08:30 - Labs Result Diagrams: 01/26/17 07:15 01/26/17 07:15 Labs: Laboratory Results - last 24 hr 01/25/17 01/25/17 01/25/17 04:51 04:51 04:51 WBC 8.1 RBC 5.00 Hgb 15.1 Hct 44.0 MCV 88.1 MCH 30.2 MCHC 34.3 RDW 13.1 Plt Count 261 MPV 7.1 L Neut % (Auto) 81.5 H Lymph % (Auto) 4.9 L [place] % (Auto) 13.0 H Eos % (Auto) 0.4 Baso % (Auto) 0.2 Neut # 6.6 Lymph # 0.4 L [place] # 1.1 H Eos # 0.0 Baso # 0.0 Neutrophils % (Manual) 82 H Lymphocytes % (Manual) 6 L Monocytes % (Manual) 12 H Platelet Estimate Normal Sodium 138 Potassium 3.4 L Chloride 104 Carbon Dioxide 27 Anion Gap 11 BUN 16 Creatinine 0.8 Est GFR ( Amer) > 60 Est GFR (Non-Af Amer) > 60 POC Glucose (mg/dL) Random Glucose 111 H Hemoglobin A1c 5.6 Calcium 7.3 L Phosphorus 2.9 Magnesium 1.9 Total Bilirubin 1.1 AST 35 ALT 53 Alkaline Phosphatase 52 Total Protein 6.6 Albumin 3.8 Globulin 2.8 Albumin/Globulin Ratio 1.3 Triglycerides 65 Cholesterol 191 LDL Cholesterol Direct 112 HDL Cholesterol 48 Stool Occult Blood 01/25/17 01/25/17 06:34 07:21 WBC RBC Hgb Hct MCV MCH MCHC RDW Plt Count MPV Neut % (Auto) Lymph % (Auto) [place] % (Auto) Eos % (Auto) Baso % (Auto) Neut # Lymph # [place] # Eos # Baso # Neutrophils % (Manual) Lymphocytes % (Manual) Monocytes % (Manual) Platelet Estimate Sodium Potassium Chloride Carbon Dioxide Anion Gap BUN Creatinine Est GFR ( Amer) Est GFR (Non-Af Amer) POC Glucose (mg/dL) 117 H Random Glucose Hemoglobin A1c Calcium Phosphorus Magnesium Total Bilirubin AST ALT Alkaline Phosphatase Total Protein Albumin Globulin Albumin/Globulin Ratio Triglycerides Cholesterol LDL Cholesterol Direct HDL Cholesterol Stool Occult Blood Positive H - Imaging and Cardiology CT scan - abdomen Status: Image reviewed by me, Report reviewed by me Assessment & Plan (1) Enteritis, infectious, presumed Assessment and Plan: Clinical features highly suggestive of infectious enteritis. Stool studies are pending. Would repeat C & S x 3, Fecal leukocytes, C diff toxin as well as Ova and Parasites. Blood cultures hopefully were done on admission. On emperic Cipro and Flagyl pending stool studies, bandemia and symptoms appear to be improving. Defer use of anti-diarrheals which may prolong bacterial/viral shedding. Status: Acute (2) Occult blood positive stool Assessment and Plan: Likley occult blood loss due to infectious process and inflammation of mucosa. Monitor for significant change in H/H. drop of one gram is likely due to hydration and dilutional. No plans for endoscopic evaluation at this time. Can be reassessed based upon clinical course and results of stool tests. Status: Acute (3) Bandemia Status: Acute
[2017-01-25] MEDS: metroNIDAZOLE IV 500 mg/100 ml 500 MG/100 ML BAG IVPB SCH ×2 (14:15→22:00)
[2017-01-26] MEDS: metroNIDAZOLE IV 500 mg/100 ml 500 MG/100 ML BAG IVPB SCH (06:00)
[2017-01-26 07:30] LABS: BASO % 0.4 % (0.0-2.0); EOS # 0.2 K/uL (0.0-0.7); HEMATOCRIT 38.4 % (35.0-51.0); LYMPH # 1.4 K/uL (1.0-4.3); LYMPH % 24.7 % (20.0-40.0); MEAN CELL VOLUME 89.2 fL (80.0-94.0); MEAN CORPUSCULAR HEMOGLOBIN 30.8 pg (27.0-31.0); MEAN CORPUSCULAR HGB CONC 34.5 g/dL (33.0-37.0); MEAN PLATELET VOLUME 7.5 fL (7.2-11.7); MONO # 0.7 K/uL (0.0-0.8); MONO % 11.7 % (0.0-10.0); NRBC % 0.1 % (0.0-2.0); RED CELL DISTRIBUTION WIDTH 13.6 % (11.5-14.5); WHITE BLOOD COUNT 5.8 K/uL (4.8-10.8)
[2017-01-26 08:20] LABS: CHLORIDE 102 mmol/L (98-107)
[2017-01-26 08:21] LABS: POTASSIUM 3.3 mmol/L (3.6-5.2); SODIUM 139 mmol/L (132-148)
[2017-01-26 08:23] LABS: ALB/GLOB RATIO 1.2 (1.0-2.1); AST/SGOT 29 U/L (17-59); BILIRUBIN,TOTAL 0.7 mg/dL (0.2-1.3); CARBON DIOXIDE 29 mmol/L (22-30); GFR AFRICAN-AMERICAN > 60; TOTAL PROTEIN 6.3 g/dL (6.3-8.3)
[2017-01-26 08:24] LABS: ALKALINE PHOSPHATASE 47 U/L (38-126); ALT/SGPT 49 U/L (21-72); BLOOD UREA NITROGEN 10 mg/dL (9-20); CALCIUM 7.9 mg/dl (8.6-10.4); GLUCOSE,RANDOM 91 mg/dL (75-110)
[2017-01-26] MEDS: Ciprofloxacin 400mg/200ml D5W 400 MG/200 ML BAG IVPB SCH (08:44)
[2017-01-26] MEDS: Lactated Ringer's 1,000 ML IV SCH (08:47)
--- NOTE | 2017-01-26 09:22 | CP.PCM.PN ---
Subjective - Date & Time of Evaluation Date of Evaluation: 01/26/17 Time of Evaluation: 09:19 - Subjective Subjective: No further pain or diarrhea, tolerated solid diet last night +gas. Objective - Vital Signs/Intake and Output Vital Signs (last 24 hours): Temp Pulse Resp BP Pulse Ox 98.2 F 88 20 119/74 96 01/25/17 23:10 01/25/17 23:10 01/25/17 23:10 01/25/17 23:10 01/25/17 23:10 Intake and Output: 01/26/17 01/26/17 06:59 18:59 Intake Total 920 Balance 920 - Medications Medications: Current Medications Heparin Sodium (Porcine) (Heparin) 5,000 units SC Q12 [facility] Last Admin: 01/25/17 11:22 Dose: Not Given Lactated Ringer's (Lactated Ringer's) 1,000 mls @ 100 mls/hr IV .Q10H [facility] Last Admin: 01/26/17 08:47 Dose: Not Given Ciprofloxacin (Cipro 400mg/200ml Dsw) 400 mg in 200 mls @ 133 mls/hr IVPB Q12H [facility] Last Admin: 01/26/17 08:44 Dose: 133 mls/hr Metronidazole (Flagyl) 500 mg in 100 mls @ 100 mls/hr IVPB Q8 [facility] Last Admin: 01/26/17 06:00 Dose: 100 mls/hr Ondansetron HCl (Zofran Inj) 4 mg IVP Q6H PRN PRN Reason: Nausea/Vomiting Pantoprazole Sodium (Protonix Inj) 40 mg IVP DAILY [facility] Last Admin: 01/25/17 09:46 Dose: 40 mg Pneumococcal Polyvalent Vaccine (Pneumovax 23 Vaccine) 0.5 ml IM .ONCE ONE Stop: 01/27/17 10:01 - Labs Labs: 01/26/17 07:15 01/26/17 07:15 PT 11.2 SECONDS (9.7-12.2) 01/25/17 00:56 INR 1.0 01/25/17 00:56 APTT 26 SECONDS (21-34) 01/25/17 00:56 - Constitutional Appears: No Acute Distress - Head Exam Head Exam: ATRAUMATIC, NORMOCEPHALIC - Respiratory Exam Respiratory Exam: NORMAL BREATHING PATTERN - Cardiovascular Exam Cardiovascular Exam: REGULAR RHYTHM, +S1 - GI/Abdominal Exam GI & Abdominal Exam: Soft, Normal Bowel Sounds. absent: Guarding, Rigid, Tenderness, Mass, Rebound - Extremities Exam Extremities Exam: Normal Inspection Assessment and Plan (1) Enteritis, infectious, presumed Assessment & Plan: Stool positive for WBC's as well. Cultures still pending. As clincially stable will advance diet Change antibiotics to po for 7 days and discharge to outpatient follow up with me in 2 weeks. Await results of stool studies. Stable for discharge today from GI point of view. Status: Acute (2) Occult blood positive stool Status: Acute (3) Bandemia Status: Acute
[2017-01-26] MEDS ORDERED: Potassium Chloride 20 mEq ER Tab PO ONE (09:30)
[2017-01-26 10:32] VITALS: RESP 18
[2017-01-26 12:56] VITALS: BP 121/76; PULSE 83; TEMP 98; O2SAT 99
--- NOTE | 2017-01-26 17:25 | CP.PCM.DIS ---
<Joanne Au DO - Last Filed: 01/26/17 17:16> Provider - Provider Date of Admission: 01/25/17 02:25 Attending physician: Jonathan Kendrick MD Consults: Dr. Rachel Potts Time Spent in preparation of Discharge (in minutes): 35 Diagnosis - Discharge Diagnosis (1) Enteritis Status: Acute Comment: Patient treated with cipro and flagyl and is to continue PO medications for 7 days. Hospital Course - Lab Results Lab Results: Most Recent Lab Values WBC 5.8 K/uL (4.8-10.8) 01/26/17 07:15 RBC 4.31 Mil/uL (4.40-5.90) L 01/26/17 07:15 Hgb 13.3 g/dL (12.0-18.0) 01/26/17 07:15 Hct 38.4 % (35.0-51.0) 01/26/17 07:15 MCV 89.2 fL (80.0-94.0) 01/26/17 07:15 MCH 30.8 pg (27.0-31.0) 01/26/17 07:15 MCHC 34.5 g/dL (33.0-37.0) 01/26/17 07:15 RDW 13.6 % (11.5-14.5) 01/26/17 07:15 Plt Count 255 K/uL (130-400) 01/26/17 07:15 MPV 7.5 fL (7.2-11.7) 01/26/17 07:15 Neut % (Auto) 60.2 % (50.0-75.0) 01/26/17 07:15 Lymph % (Auto) 24.7 % (20.0-40.0) 01/26/17 07:15 Harvey % (Auto) 11.7 % (0.0-10.0) H 01/26/17 07:15 Eos % (Auto) 3.0 % (0.0-4.0) 01/26/17 07:15 Baso % (Auto) 0.4 % (0.0-2.0) 01/26/17 07:15 Neut # 3.5 K/uL (1.8-7.0) 01/26/17 07:15 Lymph # 1.4 K/uL (1.0-4.3) 01/26/17 07:15 Harvey # 0.7 K/uL (0.0-0.8) 01/26/17 07:15 Eos # 0.2 K/uL (0.0-0.7) 01/26/17 07:15 Baso # 0.0 K/uL (0.0-0.2) 01/26/17 07:15 Neutrophils % (Manual) 82 % (50-75) H 01/25/17 04:51 Band Neutrophils % 37 % (0-2) H* 01/25/17 00:49 Lymphocytes % (Manual) 6 % (20-40) L 01/25/17 04:51 Reactive Lymphs % 1 % (0-0) H 01/25/17 00:49 Monocytes % (Manual) 12 % (0-10) H 01/25/17 04:51 Eosinophils % (Manual) 1 % (0-4) 01/25/17 00:49 Blast Cells % 1 % (0-0) H 01/25/17 00:49 Platelet Estimate Normal (NORMAL) 01/25/17 04:51 PT 11.2 SECONDS (9.7-12.2) 01/25/17 00:56 INR 1.0 01/25/17 00:56 APTT 26 SECONDS (21-34) 01/25/17 00:56 pO2 21 mm/Hg (30-55) L 01/25/17 02:10 VBG pH 7.30 (7.32-7.43) L 01/25/17 02:10 VBG pCO2 58 mmHg (40-60) 01/25/17 02:10 VBG HCO3 23.7 mmol/L 01/25/17 02:10 VBG Total CO2 30.3 mmol/L (22-28) H 01/25/17 02:10 VBG O2 Sat (Calc) 39.1 % (40-65) L 01/25/17 02:10 VBG Base Excess 0.8 mmol/L (0.0-2.0) 01/25/17 02:10 VBG Potassium 3.3 mmol/L (3.6-5.2) L 01/25/17 02:10 Sodium 140.0 mmol/l (132-148) 01/25/17 02:10 Chloride 102.0 mmol/L (98-107) 01/25/17 02:10 Glucose 115 mg/dl (75-110) H 01/25/17 02:10 Lactate 1.9 mmol/L (0.7-2.1) 01/25/17 02:10 Crit Value Called To Dr burch 01/25/17 02:10 Crit Value Called By Anne suarez rt 01/25/17 02:10 Crit Value Read Back Y 01/25/17 02:10 Blood Gas Notified Time 218 01/25/17 02:10 Sodium 139 mmol/L (132-148) 01/26/17 07:15 Potassium 3.3 mmol/L (3.6-5.2) L 01/26/17 07:15 Chloride 102 mmol/L (98-107) 01/26/17 07:15 Carbon Dioxide 29 mmol/L (22-30) 01/26/17 07:15 Anion Gap 11 (10-20) 01/26/17 07:15 BUN 10 mg/dL (9-20) 01/26/17 07:15 Creatinine 0.9 MG/DL (0.8-1.5) 01/26/17 07:15 Est GFR ( Amer) > 60 01/26/17 07:15 Est GFR (Non-Af Amer) > 60 01/26/17 07:15 POC Glucose (mg/dL) 99 mg/dL (65-110) 01/26/17 11:19 Random Glucose 91 mg/dL (75-110) 01/26/17 07:15 Hemoglobin A1c 5.6 % (4.2-6.5) 01/25/17 04:51 Calcium 7.9 mg/dl (8.6-10.4) L 01/26/17 07:15 Phosphorus 2.9 mg/dL (2.5-4.5) 01/25/17 04:51 Magnesium 1.9 mg/dL (1.6-2.3) 01/25/17 04:51 Total Bilirubin 0.7 mg/dL (0.2-1.3) 01/26/17 07:15 AST 29 U/L (17-59) 01/26/17 07:15 ALT 49 U/L (21-72) 01/26/17 07:15 Alkaline Phosphatase 47 U/L (38-126) 01/26/17 07:15 Total Protein 6.3 g/dL (6.3-8.3) 01/26/17 07:15 Albumin 3.5 g/dL (3.5-5.0) 01/26/17 07:15 Globulin 2.8 gm/dL (2.2-3.9) 01/26/17 07:15 Albumin/Globulin Ratio 1.2 (1.0-2.1) 01/26/17 07:15 Triglycerides 65 mg/dL (0-149) 01/25/17 04:51 Cholesterol 191 mg/dL (0-199) 01/25/17 04:51 LDL Cholesterol Direct 112 mg/dL (0-129) 01/25/17 04:51 HDL Cholesterol 48 mg/dL (30-70) 01/25/17 04:51 Lipase 28 U/L (23-300) 01/25/17 00:49 Venous Blood Potassium 3.3 mmol/L (3.6-5.2) L 01/25/17 02:10 Urine Color Yellow (YELLOW) 01/25/17 00:41 Urine Clarity Clear (Clear) 01/25/17 00:41 Urine pH 5.0 (5.0-8.0) 01/25/17 00:41 Ur Specific [place] 1.015 (1.003-1.030) 01/25/17 00:41 Urine Protein 1+ mg/dL (NEGATIVE) H 01/25/17 00:41 Urine Glucose (UA) Normal mg/dL (Normal) 01/25/17 00:41 Urine Ketones 1+ mg/dL (NEGATIVE) H 01/25/17 00:41 Urine Blood Negative (NEGATIVE) 01/25/17 00:41 Urine Nitrate Negative (NEGATIVE) 01/25/17 00:41 Urine Bilirubin Negative (NEGATIVE) 01/25/17 00:41 Urine Urobilinogen Normal mg/dL (0.2-1.0) 01/25/17 00:41 Ur Leukocyte Esterase Neg Ben/uL (Negative) 01/25/17 00:41 Urine WBC (Auto) 1 /hpf (0-5) 01/25/17 00:41 Urine RBC (Auto) 1 /hpf (0-3) 01/25/17 00:41 Stool Occult Blood Positive (NEGATIVE) H 01/25/17 07:21 Stool Leukocytes, Qual Positive (NEGATIVE) H 01/25/17 06:15 C. difficile Ag & Toxin Negative (NEGATIVE) 01/25/17 Unknown - Hospital Course Hospital Course: On Admission: 41 yo male with no PMHx on no medications presenting with abdominal pain, nausea , and vomiting for the past 2 days. Patient states that Wednesday night he ate a tuna sandwich and started to have abdominal pain 10/10 at the middle of his abdomen, non radiating, and associated nausea, vomiting, and diarrhea. Patient reports he has had ~20 bouts of nonbloody nonmelanotic diarrhea and nonbloody nonbilious emesis. His last episode of emesis was during the day before admission and his last episode of diarrhea was in the ER. He also complained of associated fever and chills. Patient reported taking tylenol for the pain and drinking 1 bottle of pedialyte which helped but a couple of hours later the symptoms returned. Patient also drank prune juice to help his pain and diarrhea which he later threw up. He denied any exacerbating factors. Patient denied headache, dizziness, chest pain, palpitations, SOB, cough, constipation, urinary complaints, pain/swelling in his legs bilaterally. He did admit to fever , chills, nasuea, vomiting, abd pain, diarrhea, full body muscle aches. Patient denied any recent travel, sick contacts, recent illness. Nobody else at home has similar symptoms. During Hospitalization: Patient was started on IV antibiotics for gastroenteritis. Patient had CT scan that showed: CT abdomen/pelvis- multiple dilated loops of small bowel that are fluid-filled. Questionable mucosal enhancement in some of distal small bowel loops. mildly thickened stomach wall, fluid-filled colon. Multiple small mesenteric lymph nodes at root of mesentery. Terminal ileum nondilated. Findings concerning for possible small bowel obstruction which may be related to ileitis or stricture. Patient was evaluated by Dr. Potts, general surgery, to rule out small bowel obstruction. Patient was able to tolerate diet and had bowel movements. Patient was evaluated by GI, Dr. Ramos, due to positive occult blood in stool. Patient tested negative for C. Diff, tested positive for fecal leukocytes. Other stool studies are pending and patient can follow up results with Dr. Ramos as outpatient. On Discharge: Patient is stable for discharge home per Dr. Kendrick. Patient is to follow up with his PMD within one week of discharge. Patient is to follow up with Dr. Ramos, weight shifter, upon discharge for results of stool studies. Patient is being given prescriptions for ciprofloxacin 500mg twice a day for 7 days as well as flagyl 500mg q8h for 7 days. Patient should return to the ER if his symptoms reoccur or worsen. This was explained to the patient who understands and agrees. Discharge Exam - Head Exam Head Exam: ATRAUMATIC, NORMOCEPHALIC - Eye Exam Eye Exam: EOMI - ENT Exam ENT Exam: Mucous Membranes Moist - Respiratory Exam Respiratory Exam: NORMAL BREATHING PATTERN - Cardiovascular Exam Cardiovascular Exam: +S1, +S2 - GI/Abdominal Exam GI & Abdominal Exam: Normal Bowel Sounds, Soft. absent: Tenderness - Extremities Exam Extremities exam: normal inspection - Neurological Exam Neurological exam: Alert - Skin Skin Exam: Warm Discharge Plan - Discharge Medications Prescriptions: Ciprofloxacin [Cipro] 500 mg PO Q12H #14 tab metroNIDAZOLE [Flagyl] 250 mg PO Q8 #21 tab - Follow Up Plan Condition: FAIR Disposition: HOME/ ROUTINE Instructions: Ciprofloxacin (By mouth), Metronidazole (By mouth), Low Fat Diet (DC), Enteritis (DC) Additional Instructions: Patient is stable for discharge home per Dr. Kendrick. Patient is to follow up with his PMD within one week of discharge. Patient is to follow up with Dr. Ramos, weight shifter, upon discharge for results of stool studies. Patient is being given prescriptions for ciprofloxacin 500mg twice a day for 7 days as well as flagyl 500mg q8h for 7 days. Patient should return to the ER if his symptoms reoccur or worsen. This was explained to the patient who understands and agrees. Referrals: Abhay Ramos MD [Staff Provider] - 1 Week <Jonathan Kendrick - Last Filed: 01/27/17 07:38> Provider - Provider Date of Admission: 01/25/17 02:25 Attending physician: Jonathan Kendrick MD Hospital Course - Lab Results Lab Results: Most Recent Lab Values WBC 5.8 K/uL (4.8-10.8) 01/26/17 07:15 RBC 4.31 Mil/uL (4.40-5.90) L 01/26/17 07:15 Hgb 13.3 g/dL (12.0-18.0) 01/26/17 07:15 Hct 38.4 % (35.0-51.0) 01/26/17 07:15 MCV 89.2 fL (80.0-94.0) 01/26/17 07:15 MCH 30.8 pg (27.0-31.0) 01/26/17 07:15 MCHC 34.5 g/dL (33.0-37.0) 01/26/17 07:15 RDW 13.6 % (11.5-14.5) 01/26/17 07:15 Plt Count 255 K/uL (130-400) 01/26/17 07:15 MPV 7.5 fL (7.2-11.7) 01/26/17 07:15 Neut % (Auto) 60.2 % (50.0-75.0) 01/26/17 07:15 Lymph % (Auto) 24.7 % (20.0-40.0) 01/26/17 07:15 Harvey % (Auto) 11.7 % (0.0-10.0) H 01/26/17 07:15 Eos % (Auto) 3.0 % (0.0-4.0) 01/26/17 07:15 Baso % (Auto) 0.4 % (0.0-2.0) 01/26/17 07:15 Neut # 3.5 K/uL (1.8-7.0) 01/26/17 07:15 Lymph # 1.4 K/uL (1.0-4.3) 01/26/17 07:15 Harvey # 0.7 K/uL (0.0-0.8) 01/26/17 07:15 Eos # 0.2 K/uL (0.0-0.7) 01/26/17 07:15 Baso # 0.0 K/uL (0.0-0.2) 01/26/17 07:15 Neutrophils % (Manual) 82 % (50-75) H 01/25/17 04:51 Band Neutrophils % 37 % (0-2) H* 01/25/17 00:49 Lymphocytes % (Manual) 6 % (20-40) L 01/25/17 04:51 Reactive Lymphs % 1 % (0-0) H 01/25/17 00:49 Monocytes % (Manual) 12 % (0-10) H 01/25/17 04:51 Eosinophils % (Manual) 1 % (0-4) 01/25/17 00:49 Blast Cells % 1 % (0-0) H 01/25/17 00:49 Platelet Estimate Normal (NORMAL) 01/25/17 04:51 PT 11.2 SECONDS (9.7-12.2) 01/25/17 00:56 INR 1.0 01/25/17 00:56 APTT 26 SECONDS (21-34) 01/25/17 00:56 pO2 21 mm/Hg (30-55) L 01/25/17 02:10 VBG pH 7.30 (7.32-7.43) L 01/25/17 02:10 VBG pCO2 58 mmHg (40-60) 01/25/17 02:10 VBG HCO3 23.7 mmol/L 01/25/17 02:10 VBG Total CO2 30.3 mmol/L (22-28) H 01/25/17 02:10 VBG O2 Sat (Calc) 39.1 % (40-65) L 01/25/17 02:10 VBG Base Excess 0.8 mmol/L (0.0-2.0) 01/25/17 02:10 VBG Potassium 3.3 mmol/L (3.6-5.2) L 01/25/17 02:10 Sodium 140.0 mmol/l (132-148) 01/25/17 02:10 Chloride 102.0 mmol/L (98-107) 01/25/17 02:10 Glucose 115 mg/dl (75-110) H 01/25/17 02:10 Lactate 1.9 mmol/L (0.7-2.1) 01/25/17 02:10 Crit Value Called To Dr burch 01/25/17 02:10 Crit Value Called By Anne suarez rt 01/25/17 02:10 Crit Value Read Back Y 01/25/17 02:10 Blood Gas Notified Time 218 01/25/17 02:10 Sodium 139 mmol/L (132-148) 01/26/17 07:15 Potassium 3.3 mmol/L (3.6-5.2) L 01/26/17 07:15 Chloride 102 mmol/L (98-107) 01/26/17 07:15 Carbon Dioxide 29 mmol/L (22-30) 01/26/17 07:15 Anion Gap 11 (10-20) 01/26/17 07:15 BUN 10 mg/dL (9-20) 01/26/17 07:15 Creatinine 0.9 MG/DL (0.8-1.5) 01/26/17 07:15 Est GFR ( Amer) > 60 01/26/17 07:15 Est GFR (Non-Af Amer) > 60 01/26/17 07:15 POC Glucose (mg/dL) 99 mg/dL (65-110) 01/26/17 11:19 Random Glucose 91 mg/dL (75-110) 01/26/17 07:15 Hemoglobin A1c 5.6 % (4.2-6.5) 01/25/17 04:51 Calcium 7.9 mg/dl (8.6-10.4) L 01/26/17 07:15 Phosphorus 2.9 mg/dL (2.5-4.5) 01/25/17 04:51 Magnesium 1.9 mg/dL (1.6-2.3) 01/25/17 04:51 Total Bilirubin 0.7 mg/dL (0.2-1.3) 01/26/17 07:15 AST 29 U/L (17-59) 01/26/17 07:15 ALT 49 U/L (21-72) 01/26/17 07:15 Alkaline Phosphatase 47 U/L (38-126) 01/26/17 07:15 Total Protein 6.3 g/dL (6.3-8.3) 01/26/17 07:15 Albumin 3.5 g/dL (3.5-5.0) 01/26/17 07:15 Globulin 2.8 gm/dL (2.2-3.9) 01/26/17 07:15 Albumin/Globulin Ratio 1.2 (1.0-2.1) 01/26/17 07:15 Triglycerides 65 mg/dL (0-149) 01/25/17 04:51 Cholesterol 191 mg/dL (0-199) 01/25/17 04:51 LDL Cholesterol Direct 112 mg/dL (0-129) 01/25/17 04:51 HDL Cholesterol 48 mg/dL (30-70) 01/25/17 04:51 Lipase 28 U/L (23-300) 01/25/17 00:49 Venous Blood Potassium 3.3 mmol/L (3.6-5.2) L 01/25/17 02:10 Urine Color Yellow (YELLOW) 01/25/17 00:41 Urine Clarity Clear (Clear) 01/25/17 00:41 Urine pH 5.0 (5.0-8.0) 01/25/17 00:41 Ur Specific [place] 1.015 (1.003-1.030) 01/25/17 00:41 Urine Protein 1+ mg/dL (NEGATIVE) H 01/25/17 00:41 Urine Glucose (UA) Normal mg/dL (Normal) 01/25/17 00:41 Urine Ketones 1+ mg/dL (NEGATIVE) H 01/25/17 00:41 Urine Blood Negative (NEGATIVE) 01/25/17 00:41 Urine Nitrate Negative (NEGATIVE) 01/25/17 00:41 Urine Bilirubin Negative (NEGATIVE) 01/25/17 00:41 Urine Urobilinogen Normal mg/dL (0.2-1.0) 01/25/17 00:41 Ur Leukocyte Esterase Neg Ben/uL (Negative) 01/25/17 00:41 Urine WBC (Auto) 1 /hpf (0-5) 01/25/17 00:41 Urine RBC (Auto) 1 /hpf (0-3) 01/25/17 00:41 Stool Occult Blood Positive (NEGATIVE) H 01/25/17 07:21 Stool Leukocytes, Qual Positive (NEGATIVE) H 01/25/17 06:15 C. difficile Ag & Toxin Negative (NEGATIVE) 01/25/17 Unknown Attending/Attestation - Attestation I have personally seen and examined this patient.: Yes I have fully participated in the care of the patient.: Yes I have reviewed all pertinent clinical information, including history, physical exam and plan: Yes Notes (Text): 01/27/17 07:37 Patient was seen and examined at bedside with the resident. He is able to tolerate food or denies any abdominal pain, nausea, vomiting Patient is clear for discharge by surgery and the by gastroenterology We will discharge the patient to home I discussed the discharge plan with the patient and he verbalized understanding I agree with the above discharge note by the resident.
[2017-01-27] MEDS ORDERED: Pneumococcal 23-Valent Vaccine IM ONE (10:00)
== END 2017-01-26 13:37 | disposition home or self-care (01) | DRG 392 ==
LOC: C.ER 00:23 → C.9E 02:25 → C.6T 05:15
PROVIDERS: ADMIT Internal Medicine; ATTEND Internal Medicine
DX: A09 Infectious gastroenteritis and colitis, unspecified (principal); D72.825 Bandemia